=== PATIENT | female | born 1995 | race Asian ===

== ENCOUNTER 2018-09-27 02:36 | Inpatient (IN) | payer BC, MEDICAID ==
[2018-09-27] MEDS ORDERED: Lidocaine 2% VISCOUS* 15 ML UDC ONE (03:17)
--- NOTE | 2018-09-27 04:27 | HP ---
General Information - Reason for Visit active labor - General Information Maternal Age: 23 Grav: 1 Para: 0 SAB: 0 IEA: 0 Estimated Due Date: 09/29/18 Determined By: LMP Maternal Blood Type and Rh: B Positive - Results this Serology/RPR Result: Non-Reactive Rubella Result: Immune HBsAg Result: Negative HIV Result: Negative GBS Culture Result: Negative Past Medical History Pertinent Past Medical History: Non-Contributory Pertinent Past Surgical History: None Pertinent Family History: See Records - PGM: HTN - Antepartal Records Antepartal Records: Reviewed, Complicated by: - varicella nonimmune Review of Systems Constitutional: Uncomfortable CV Complaint: No Respiratory: Shortness of Breath: No Gastrointestinal: No Nausea/Vomiting, Normal Bowel Movement Genitourinary: No Leaking Fluid Musculoskeletal: No Epigastric Pain, Contractions Neurological: No Headache, No Visual Changes Movement: Normal Exam Allergies/Adverse Reactions: Allergies No Known Allergies Allergy (Verified 09/27/18 03:25) T:98.7, P:78, R:20, BP: 112/64 - Measurements Height: 5 ft 4 in Weight: 148 lb Weight in lbs: [id number] Body Mass Index (BMI): 25.4 Pre- Weight: 126 lb - Exam Breast: Breast Exam Deferred CVA: No CVA Tenderness Extremities: No Edema Heart: Normal Rhythm/Heart Sounds HEENT: No Significant Findings Lungs: Clear Bilaterally Rectal: Rectal Exam Deferred Reflexes: DTR 2+ Thyroid: No Thyromegaly - Abdominal Exam Abdomen Exam: Fundal Height Consistent with Dates - Ultrasound/Biophysical Profile Ultrasound Status: Not Done Targeted Exam Findings Estimated Weight: [id number] Cervical Exam: Complete Effacement: Thin Station: +1 Presenting Part: Vertex Membrane Status: Intact Bleeding/Discharge: Bloody Show EFM Findings - External Monitor Findings Baseline Heart Rate: 130 External Monitor Findings: Accelerations Present, No Pattern of Variable or Late Decelerations, Variability Moderate, Baseline Stable Contractions: Regular, Moderate, 45-90 Seconds Assessment/Plan - Assessment 23 y.o. , 39w5d, active labor - Plan Plan: Admit - Anticipate Vaginal Delivery - Date/Time of Admission Date of Admission: 09/27/18 Time of Admission: 02:30
[2018-09-27] MEDS ORDERED: Lactated Ringers 1000 ML Bag* 1,000 ML IV ONE (04:28)
[2018-09-27] MEDS ORDERED: Buffered Lidocaine 1% SYRIN* 1 ML/SYRINGE INTRADERM ONE (04:28)
--- NOTE | 2018-09-27 04:28 | PROCNOTE ---
[facility] OB: Delivery Note - Delivery A Date of : 09/27/18 Time of : 03:35 Sex: Female Score 1 Minute: 9 Score 5 Minutes: 9 Gestational Age in Weeks and Days at Delivery: 39 Weeks and 5 Days Delivery Method: Spontaneous Vaginal Labor: Spontaneous Amniotic Fluid: Clear Estimated Blood Loss: 250 Anesthesia/Analgesia: None Delivered By: Jessa Arevalo - Nursery Level of Nursery: Regular/Bedside - Perineum Perineal Injury: Perineal Laceration, 1st Degree Perineal Repair: By Delivering Practioner - Events Delivery Events of Note: None Apply
[2018-09-27] MEDS ORDERED: Varicella Virus Vaccine Live* 0.5 ML VIAL SUBCUT ONE (04:30)
[2018-09-27] MEDS ORDERED: Glycerin ADULT SUPP PR PRN (04:30)
[2018-09-27] MEDS ORDERED: Lactated Ringers 1000 ML Bag* 1,000 ML IV SCH ×2 (05:00)
[2018-09-27] MEDS: Docusate CAP* 100 MG PO SCH ×3 (09:26→19:49)
[2018-09-27] MEDS: Ibuprofen TAB* 600 MG PO PRN ×2 (09:29→17:29)
[2018-09-27] MEDS: Simethicone TAB* 80 MG TAB.CHEW PO SCH (12:37)
[2018-09-27] MEDS: Acetaminophen TAB* 325 MG PO PRN (21:53)
[2018-09-28] MEDS: Ibuprofen TAB* 600 MG PO PRN ×2 (02:13→10:47)
[2018-09-28 08:17] LABS: ABS Basophils 0.1 10^3/ul (0-0.2); ABS Eosinophils 0.1 10^3/ul (0-0.6); ABS Lymphocytes 0.7 10^3/ul (1.0-4.8); ABS Monocytes 0.5 10^3/ul (0-0.8); ABS Neutrophils 7.6 10^3/ul (1.5-7.7); ABS Nucleated RBC 0 10^3/ul; Eosinophil % 1.6 %; Hematocrit 34 % (33-41); Hemoglobin 11.8 g/dL (12.0-16.0); Mean Corpuscular HGB Conc 35 g/dL (31-36); Mean Corpuscular Hemoglobin 33 pg (27-31); Mean Corpuscular Volume 95 fL (80-97); Mean Platelet Volume 8.4 fL (7.4-10.4); Nucleated Red Blood Cells % 0; Platelet Count 114 10^3/uL (150-450); Red Blood Count 3.63 10^6 /uL (3.70-4.87); Red Cell Distribution Width 14 % (10.5-15)
[2018-09-28] MEDS: Docusate CAP* 100 MG PO SCH ×3 (08:56→20:09)
[2018-09-28] MEDS ORDERED: Ferrous Gluconate TAB* 324 MG TAB PO SCH (09:00)
[2018-09-28] MEDS: Dibucaine 1% 28.35 GM TUBE PR PRN (10:49)
[2018-09-28] MEDS: Witch Hazel PAD* JAR TOPICAL PRN (10:49)
[2018-09-29 08:38] VITALS: BP 111/67
[2018-09-29] MEDS: Ibuprofen TAB* 600 MG PO PRN (09:45)
[2018-09-29] MEDS: Docusate CAP* 100 MG PO SCH ×2 (09:46→14:33)
--- NOTE | 2018-09-29 10:08 | PTEDU ---
Patient Name: EVELYN KAM EVELYN KAM selected video: BBOB: Nurturing Your Gorgeous &Growing Baby by to view on at 10:06:46 [id number]
--- NOTE | 2018-09-29 10:39 | PTEDU ---
Patient Name: EVELYN KAM EVELYN KAM selected video: Never Ever Shake a Baby to view on 09/29/2018 at 10:37:47 [id number]
--- NOTE | 2018-09-29 10:48 | PTEDU ---
Patient Name: EVELYN KAM EVELYN KAM selected video: BBOB: Bonding Through Massage to view on 09/29/2018 at 10:47:02 [id number]
[2018-09-29] MEDS: Acetaminophen TAB* 325 MG PO PRN (14:46)
[2018-09-29] MEDS: Witch Hazel PAD* JAR TOPICAL PRN (14:46)
[2018-09-29] MEDS: Dibucaine 1% 28.35 GM TUBE PR PRN (14:46)
== END 2018-09-29 16:00 | disposition home or self-care (01) | DRG 560 ==
LOC: MCHOBOUT 02:36 → MCHOB 02:51
PROVIDERS: ADMIT Midwife; ATTEND Midwife
PROC: 10E0XZZ Delivery of Products of Conception, External Approach (ICD-10-PCS; principal; 2018-09-27)
PROC: 0HQ9XZZ Repair Perineum Skin, External Approach (ICD-10-PCS; 2018-09-27)
PROC: 4A1HXCZ Monitoring of Products of Conception, Cardiac Rate, External Approach (ICD-10-PCS; 2018-09-27)
DX: O70.0 First degree perineal laceration during delivery (principal); Z37.0 Single live birth; Z3A.39 39 weeks gestation of pregnancy
CPT/HCPCS: 36415; 85025; A9270-GY

== ENCOUNTER 2019-02-19 17:36 | Emergency (ER) | payer BC, MEDICAID ==
[2019-02-19 17:55] VITALS: BP 104/63
[2019-02-19] MEDS ORDERED: Acetaminophen TAB* 325 MG PO ONE (18:00)
--- NOTE | 2019-02-19 19:32 | UC ---
General HPI - HPI Summary HPI Summary: 23 yo female presents to with her husbande. Pt is 4.5 months post - vaginal - breast feeding. Pt states this am felt "tired" and sore throat. Pt states noted a fever at home "felt hot" and took APAP at noon. Pt states felt better but got hot again so came to . Pt denies n/v/d. No cough. no sob. no rash. No abdominal pain. no dysuria. no vaginal discharge, itching, odor. No diarrhea. no travel. no breast pain, reddness. mild sinus congestion. no eat pain no sick contacts. medications reviewed this visit - History of Current Complaint Chief Complaint: UCGeneralIllness Stated Complaint: FEVER Time Seen by Provider: 02/19/19 18:00 Hx Obtained From: Patient, Family/Vp Strategic Planning Onset/Duration: Gradual Onset Onset Severity: Mild Current Severity: Mild Pain Intensity: 3 - Allergy/Home Medications Allergies/Adverse Reactions: Allergies Allergy/AdvReac Type Severity Reaction Status Date / Time No Known Allergies Allergy Verified 02/19/19 17:55 Home Medications: Home Medications Acetaminophen TAB* [Tylenol TAB*] 650 mg PO Q6H PRN 02/19/19 [History Confirmed 02/19/19] Calcium Carbonate/Vitamin D3 [Calcium 500 + Vit D Caplet] 1 each PO DAILY [History Confirmed 02/19/19] [place]-3 Fatty Acids (Nf) [Fish Oil (NF)] 1,000 mg PO DAILY 02/19/19 [History Confirmed 02/19/19] PMH/Surg Hx/FS Hx/Imm Hx Previously Healthy: Yes - Surgical History Surgical History: None - Family History Known Family History: Positive: Non-Contributory - Social History Lives: With Family Alcohol Use: None Substance Use Type: None Smoking Status (MU): Never Smoked Tobacco - Immunization History Most Recent Influenza Vaccination: 06/18/2018 Most Recent Pneumonia Vaccination: n/a Review of Systems All Other Systems Reviewed And Are Negative: Yes Constitutional: Positive: Fever ENT: Positive: Sore Throat, Sinus Congestion Neurological: Positive: Headache - mild - nonfocal Is Patient Immunocompromised?: No Physical Exam - Summary Physical Exam Summary: Vital Signs Reviewed: Yes A+Ox3, no distress Eyes: Conjunctiva Clear, SUHAIL. 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 temp improving. d/w pt and at length. motrin/apap. hydrate. secretion precautions (pt with mask). strit return precautions. pt and comfortable and in agreement with plan Course/Dx - Course Course Of Treatment: Pt presents with fever since this am and mild sore throat. Pt took APAP at noon - none since + po no /v/d no sick contact on exam Pt with increased temp and HR Pt with mild sinus congestion and pnd no concerning findings will give antipyretic Pt drinking water without difficulty will check urine, throat and reassess - Diagnoses Provider Diagnosis: Fever, Pharyngitis Discharge ED - Sign-Out/Discharge Documenting (check all that apply): Patient Departure All imaging exams completed and their final reports reviewed: No Studies - Discharge Plan Condition: Stable Disposition: HOME Patient Education Materials: Pharyngitis (ED), Fever in Adults (ED) Referrals: [facility] [place] [facility] [Outside] No Primary Care Phys,NOPCP [Primary Care Provider] - Additional Instructions: - Stay well hydrated - drink plenty of non-alcoholic, non-caffinated beverages - Okay to alternate ibuprofen (Advil, Motrin) 600mg and tylenol (acetaminophen) 1000mg every 3 hours for fever. Take with food - do not take for more than 4-5 days - These infections are spread by oral secretions. Do not share eating or drinking utensils. Frequent hand washing is important. Clean items that may get your secretions on them such as cell phones, ipads, computer mouse, television remotes. Once you start to feel better, change your pillowcase and your toothbrush - do not breath directly on your infant - use a mask until you are fever free for 24 hours - get plenty of rest -- contact your doctor to schedule a follow-up appointment - if you develop pain, uncontrolled fevers, vomiting, abdominal pain, shortness of breath or ANY other concerns it is recommended you go to the emergency department for further treatment and evaluation - Billing Disposition and Condition Condition: STABLE Disposition: Home
== END 2019-02-19 19:10 | disposition home or self-care (01) ==
LOC: UCEAST 17:36
DX: J02.9 Acute pharyngitis, unspecified (principal); R50.9 Fever, unspecified
CPT/HCPCS: 81003; 87651; 99212; A9270-GY; G0463

== ENCOUNTER 2019-02-22 08:08 | Emergency (ER) | payer BC ==
[2019-02-22 08:19] VITALS: BP 102/68
--- NOTE | 2019-02-22 08:27 | UC ---
Throat Pain/Nasal [place] HPI - HPI Summary HPI Summary: Patient is a 23 year old female, who present today to the urgent care with sore throat for past 4 days. She reports sore throat that started this on 02/19/19. She was seen here , strep test was negative . She is currently breast-feeding and for a half months - advised supportive management for a viral infection. Says and she had fever with temp max 104. pt states throat is shart when she swollows and her bilat ears hurt. She took Tylenol today morning and has no fever right now. Also has some soreness in the gums bilateral lower molar area without any significant redness or swelling. Is associated cough with whitish phlegm productione. Denies any chest pain or shortness of breath . No diaphoresis. Denies any abdominal pain , nausea or vomiting , diarrhea or constipation. - History of Current Complaint Chief Complaint: UCRespiratory Stated Complaint: ST Time Seen by Provider: 02/22/19 08:09 ?: No Pain Intensity: 6 - Allergies/Home Medications Allergies/Adverse Reactions: Allergies Allergy/AdvReac Type Severity Reaction Status Date / Time No Known Allergies Allergy Verified 02/19/19 17:55 PMH/Surg Hx/FS Hx/Imm Hx - Additional Past Medical History Additional PMH: Past Medical History : None Past Surgical History: No Past History of Procedure Family History : non contributory Social History : No alcohol, non smoker, no drug use. Lives with family . Previously Healthy: Yes - Surgical History Surgical History: None - Family History Known Family History: Positive: Non-Contributory - Social History Alcohol Use: None Substance Use Type: None Smoking Status (MU): Never Smoked Tobacco - Immunization History Most Recent Influenza Vaccination: 06/18/2018 Most Recent Pneumonia Vaccination: n/a Review of Systems All Other Systems Reviewed And Are Negative: Yes Constitutional: Positive: Fever Skin: Positive: Negative Eyes: Positive: Negative ENT: Positive: Sore Throat, Ear Ache - Bilateral Respiratory: Positive: Cough - Whitish phlegm Cardiovascular: Positive: Negative Gastrointestinal: Positive: Negative Genitourinary: Positive: Negative Motor: Positive: Negative Neurovascular: Positive: Negative Musculoskeletal: Positive: Negative Neurological: Positive: Negative Psychological: Positive: Negative Is Patient Immunocompromised?: No Physical Exam - Summary Physical Exam Summary: Physical Exam: Const: Appears well. No signs of apparent distress present. Alert and oriented x 3. Musculo: Walks with a normal gait. Head/Face: Atraumatic, normocephalic on inspection. Eyes: EOMI and PERRLA in both eyes. Conjunctivae clear. No discharge noted ENT: Hearing normal, TM normal appearing bilaterally, non bulging , non erythematous . No tenderness on palpation / manipulation of Tragus. No mastoid tenderness. No tenderness to palpation on maxillary and frontal sinus. There is pharyngeal erythema with whitish exudates on the right tonsillar area. Uvula is midline. There left submandibular lymphadenopathy noted. Respiratory: Respirations are unlabored. Lungs clear to auscultation bilaterally, no wheezing , rhonchi or rales noted . CVS: Regular rate and Rhythm, S1S2 normal , no murmurs identified. Extremities: Peripheral circulation is grossly normal. Pulses 2+ Abdomen : Soft non tender , nondistended , Bowel sounds present . No guarding , rebound tenderness or rigidity noted. Skin: No lesions or rash located on the upper extremities or on the lower extremities. Neuro: Cranial nerves II to XII intact, motor and sensory intact. DTR Intact bilaterally. Mood is normal. Affect is normal. Triage Information Reviewed: Yes Vital Signs: Initial Vital Signs Temp 97.9 F 02/22/19 08:15 Pulse 72 02/22/19 08:15 Resp 18 02/22/19 08:15 BP 102/68 02/22/19 08:15 Pulse Ox 97 02/22/19 08:15 Vital Signs Reviewed: Yes Throat Pain/Nasal Course/Dx - Course Course Of Treatment: During the visit today, we discussed the option of repeat strep test but was deferred. Likely a viral pharyngitis. She also has some gingivitis now but benign exam, plan to cover it with amoxicillin I will prescribe the medication to the pharmacy . We discussed that the pharyngitis will eventually go away since his viral in nature. Supportive treatment discussed Patient expressed understanding . - Differential Dx/Diagnosis Provider Diagnosis: Pharyngitis, Gingivitis Discharge ED - Sign-Out/Discharge Documenting (check all that apply): Patient Departure All imaging exams completed and their final reports reviewed: No Studies - Discharge Plan Condition: Stable Disposition: HOME Prescriptions: Amoxicillin PO (*) [Amoxicillin 500 MG CAP*] 500 mg PO Q12H 10 Days #20 cap Patient Education Materials: Gingivitis (ED), Viral Syndrome (ED) Referrals: [facility] [place] [facility] [Outside] - 3 Days No Primary Care Phys,NOPCP [Primary Care Provider] - Additional Instructions: Please start taking the medication as prescribed to the pharmacy. Follow up with primary care doctor in 2- 3 days. Return to Urgent care / ER if symptoms get worse. - Billing Disposition and Condition Condition: STABLE Disposition: Home
== END 2019-02-22 08:47 | disposition home or self-care (01) ==
LOC: UCEAST 08:08
DX: J02.9 Acute pharyngitis, unspecified (principal); K05.10 Chronic gingivitis, plaque induced
CPT/HCPCS: 99212; G0463